=== PATIENT | female | born 1950 | race Caucasian/White ===

== ENCOUNTER → 2024-02-08 | Outpatient (CLI) | payer OTHER ==
[~2024-02-08] MED LIST: CETI-89 PO; CHOL200074 PO; CYCL5TAB3 PO; GARLIC PO; L.AC1CAP6 PO; MAGNESIUM PO; METF-446 PO; RIZA10TA41 PO; TOPI100T37 PO; TRAM50TA4 PO; UBIQ100C2 PO; VITA1CAP PO; [UNRECOGNIZED DRUG - CODE] PO; [UNRECOGNIZED DRUG - OTHER] PO; [UNRECOGNIZED DRUG - OTHER] PO; [UNRECOGNIZED DRUG - OTHER] TP; hydrocortisone PO
--- NOTE | 2024-02-08 12:03 | HMCIMG ---
DEXA BONE DENSITY SURVEY REASON: ASYMPTOMATIC MENOPAUSAL STATE COMPARISON: None TECHNIQUE: DEXA bone densitometry was performed of the lumbar spine and left hip. FINDINGS: Mean bone mass density in the spine is 0.8 g/sq cm, T score -2.2, corresponding with osteopenia. Femoral neck T score however is -2.6 corresponding with osteoporosis. IMPRESSION: 1. Osteoporosis consistent with a high fracture risk.
== END | disposition home or self-care (01) ==
LOC: RAH 08:29
PROVIDERS: ATTEND Family Medicine
DX: M81.0 Age-related osteoporosis without current pathological fracture (principal); M85.88 Other specified disorders of bone density and structure, other site; Z78.0 Asymptomatic menopausal state
CPT/HCPCS: 77080